=== PATIENT | female | born 1985 | race Caucasian/White ===

== ENCOUNTER 2021-10-06 18:41 | Inpatient (IN) | payer MEDICARE, MEDICAID, SELFPAY ==
[2021-10-06 18:42] VITALS: BP 141/103; PULSE 92; RESP 16; O2SAT 99
--- NOTE | 2021-10-06 18:53 | ED_ITS ---
HPI - General Adult General: Chief complaint: Psychiatric Symptoms Stated complaint: suicidal ideations Time Seen by Provider: 10/06/21 18:44 History of Present Illness: HPI narrative: HPI: [35]yo patient w/ hx of depression BIBA for concerns for suicidal ideation per patient's legal guardian. for On arrival, the patient is AAOx3 and cooperative with my evaluation. No focal complaints of chest pain, shortness of breath, palpitations, N/V, focal GI/ complaints. Currently denies SI/HI. No complaints of hallucinations. Onset: acute Duration: ongoing Location: home Severity: severe Associated symptoms: Deny chest pain, dyspnea, nausea, rash, palpitations or vomiting Review of Systems Const: Denies: fever(s) or chills Eyes: Denies: change in vision ENMT: Denies: mouth pain Card: Denies: chest pain or palpitations Resp: Denies: dyspnea or non-productive cough GI: Denies: abdominal pain, nausea, vomiting or diarrhea : Denies: dysuria Musc: Denies: extremity pain Skin/Breast: Denies: rash or new lesions Neuro: Denies: weakness in extremities Psych: Reports: other (Normal mood) Kyle/Lymph: Denies: easy bruising Physical Exam Const: COMMON NORMALS: alert HENMT: COMMON NORMALS: atraumatic HEAD & SCALP: atraumatic MOUTH: moist mucous membranes not abnormal Eye: COMMON NORMALS: EOMs intact bilaterally and conjunctivae normal CONJUNCTIVA: Yes conjunctivae normal Neck/C-Spine: COMMON NORMALS: full ROM and supple Resp: COMMON NORMALS: normal respiratory effort and clear to auscultation bilaterally AUSCULTATION: clear to auscultation bilaterally Cardio: COMMON NORMALS: regular rate RATE: regular rate GI: COMMON NORMALS: Soft to palpation and non-tender PALPATION: Yes Soft to palpation Extremity: COMMON NORMALS: full ROM Neuro: SENSORIUM/ORIENTATION: Yes alert MOTOR EXAM: Abnormal motor strength present and Other motor observations present (no focla motor deficits) Psych: COMMON NORMALS: speech normal SPEECH: Yes normal speech MOOD & AFFECT: Yes euthymic mood Course Vital Signs: Vital signs: Vital Signs Pulse Rate 92 10/06/21 18:42 Respiratory Rate 16 10/06/21 18:42 Blood Pressure 141/103 10/06/21 18:42 Pulse Oximetry 99 10/06/21 18:42 MDM - General Adult MDM Narrative: Medical decision making narrative: [35]yo patient w/ hx of prior suicidal ideations presenting for concerns of suicidal ideation. HDS, exam within normal limit Thoughts are linear and organized, and the patient has no AH/VH, or HI. Clinically the patient displays no overt toxidrome; they are well appearing, with low suspicion for toxic ingestion given history and exam. Symptoms unlikely 2/2 anemia, hypothyroidism, infection, or ICH. Workup: CBC, CMP, Lipase, salicylate/tylenol, UDS Lab findings: wnl [7:45pm] On reassessment, labs and workup wnl. Patient is hemodynamically stable with no acute medical complaints. Case discussed with psychiatric provider Dr. Willams at [facility] psych inpatient with recommendation for admission Disposition: Psych Lab Data: Labs: Lab Results 10/06/21 10/06/21 18:53 19:40 WBC 7.5 10^3/uL 10^3/ uL (4.0-10.0) RBC 4.07 10^6/uL L 10 ^6/uL (4.1-5.3) Hgb 12.8 g/dL g/dL (11.5-15.3) Hct 38.1 % % (37.0-47.0) MCV 93.6 fl fl (81-99) MCH 31.4 pg pg (28.0-34.0) MCHC 33.6 g/dL g/dL (30.0-36.0) RDW 13.4 % % (12.1-15.1) Plt Count 296 10^3/cmm 10^3 /cmm (130-400) MPV 9.9 fL fL (7.4-10.4) Neut % (Auto) 46.2 % % Lymph % (Auto) 43.5 % % [place] % (Auto) 5.6 % % Eos % (Auto) 3.1 % % Baso % (Auto) 1.1 % % Neut # (Auto) 3.47 10^3/uL 10^3 /uL (1.8-7.7) Lymph # (Auto) 3.3 10^3/uL 10^3/ uL (0.8-4.8) [place] # (Auto) 0.4 10^3/uL 10^3/ uL (0.2-0.9) Eos # (Auto) 0.2 10^3/uL 10^3/ uL (0.0-0.8) Baso # (Auto) 0.1 10^3/uL 10^3/ uL (0.0-0.1) Nucleated RBC % (a uto) 0 % % Nucleated RBCs # 0.0 /100WBC /100W BC Urine Opiates Scre en Positive ng/mL H ng/mL (Negative) Ur Barbiturates Sc reen Negative ng/mL ng /mL (Negative) Ur Phencyclidine S crn Negative ng/mL ng /mL (Negative) Ur Amphetamines Sc reen Negative ng/mL ng /mL (Negative) U Benzodiazepines Scrn Negative ng/mL ng /mL (Negative) Urine Cocaine Scre en Negative ng/mL ng /mL (Negative) U Marijuana (THC) Screen Positive ng/mL H ng/mL (Negative) Discharge Plan Discharge Prescriptions: No Action venlafaxine [Effexor XR] 150 mg capsule,extended release 24hr 150 mg PO DAILY RF: 0 ziprasidone HCl [Geodon] 60 mg capsule 120 mg PO ONCE RF: 0 clonazepam [Klonopin] 1 mg tablet 1 mg PO TID RF: 0 zolpidem [Ambien] 5 mg tablet PO RF: 0 hydrocodone-acetaminophen 5-325 mg tablet 1 tab PO TID PRNRF: 0 propranolol 20 mg tablet 20 mg PO TID RF: 0 bromocriptine 5 mg capsule 10 mg PO BID RF: 0 Premarin 0.3 mg tablet 0.3 mg PO DAILY RF: 0 levetiracetam [Keppra] 500 mg tablet 500 mg PO BID RF: 0 carbamazepine [Tegretol XR] 400 mg tablet extended release 12 hr 400 mg PO BID RF: 0 metformin 1,000 mg tablet 1,000 mg PO BID RF: 0 hydroxyzine HCl 10 mg tablet 20 mg PO BID PRNRF: 0 gabapentin 300 mg capsule 300 mg PO TID RF: 0 multivitamin [One Daily Multivitamin] Tablet 1 tab PO DAILY RF: 0 doxycycline hyclate 100 mg tablet 100 mg PO BID 10 Days Qty: 20 RF: 0 prednisone 20 mg tablet 20 mg PO DAILY 5 Days Qty: 5 RF: 0 zwxeergygkbo-kebcwtghj-tdadfij 6.25-5-10 mg/5 mL syrup 5 ml PO Q6H PRN (Reason: cold symptoms) Qty: 118 RF: 0 Coding Level of Care Code ED Human Resources Intern for Chg Fwd Exam Comprehensive
[2021-10-06 20:00] LABS: Basophils # 0.1 10^3/uL (0.0-0.1); Basophils % 1.1 %; Eosinophils # 0.2 10^3/uL (0.0-0.8); Eosinophils % 3.1 %; Hematocrit 38.1 % (37.0-47.0); Hemoglobin 12.8 g/dL (11.5-15.3); Lymphocytes # 3.3 10^3/uL (0.8-4.8); Lymphocytes % 43.5 %; Mean Corpuscular HGB Conc 33.6 g/dL (30.0-36.0); Mean Corpuscular Hemoglobin 31.4 pg (28.0-34.0); Mean Corpuscular Volume 93.6 fl (81-99); Mean Platelet Volume 9.9 fL (7.4-10.4); Monocytes # 0.4 10^3/uL (0.2-0.9); Monocytes % 5.6 %; Neutrophils # 3.47 10^3/uL (1.8-7.7); Neutrophils % 46.2 %; Nucleated Red Blood Cells % 0 %; Platelet Count 296 10^3/cmm (130-400); Red Blood Count 4.07 10^6/uL (4.1-5.3); Red Cell Distribution Width 13.4 % (12.1-15.1); White Blood Count 7.5 10^3/uL (4.0-10.0)
[2021-10-06 20:23] LABS: Amphetamines Screen Urine Negative (Negative); Barbiturates Screen Urine Negative (Negative); Benzodiazepines Screen Urine Negative (Negative); Cocaine Screen Urine Negative (Negative); Opiate Screen Urine Positive (Negative); PCP Screen Urine Negative (Negative); THC Screen Urine Positive (Negative)
[2021-10-06 20:32] LABS: HCG, Serum Qual Negative (Negative)
[2021-10-06 20:35] LABS: Anion Gap 14.7 (5-19); Blood Urea Nitrogen 6 mg/dL (6-20); Carbon Dioxide 31 mmol/L (22-29); Chloride 102 mmol/L (98-107); Glomerular Filtration Rate 115.1 mL/min (90-130); Glucose 100 mg/dL (65-115); Osmolality Calculated 296 mOsm/kg (285-295); Potassium 3.7 mmol/L (3.5-5.1); Sodium 144 mmol/L (136-145)
[2021-10-06 20:46] LABS: Salicylate < 0.3 mg/dL (3-10)
[2021-10-06 21:26] VITALS: BP 136/82; PULSE 75; RESP 18; O2SAT 98
[2021-10-06 21:50] VITALS: BP 122/88; PULSE 97; RESP 18; TEMP 36.6; O2SAT 97
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
[2021-10-06 23:01] VITALS: BP 134/97; PULSE 79; RESP 16; TEMP 36.4; O2SAT 97
--- NOTE | 2021-10-07 00:48 | PC.NURSE ---
Patient refused PRN trazodone to assist with sleep, stating There are certain meds I don't take and thats one of them. I take vitamins and melatonin though.
[2021-10-07] MEDS: hyDROXYzine 25 mg Capsule 50 MG PO (04:39)
--- NOTE | 2021-10-07 04:49 | PC.NURSE ---
PRN Administration: Patient c/o of anxiety, PRN Hydroxyzine 50mg PO given as ordered.
--- NOTE | 2021-10-07 04:50 | PC.NURSE ---
Addendum entered by Steph De Anda RN 10/07/21 05:07: Patient refused to allow this nurse to complete all of physical assessment. Stated I'm tired I'm not doing this right now, I just want to sleep, come back later. Original Note: Patient has body jewelry that would be difficult to remove and expensive to replace and has retained the following body jewelry: 2 nipple rings, gages on bilateral ear lobes, 4 closed hoops on bilateral earlobes, an industrial ear piercing, 1 tragus horseshoe ring, and 3 upper conch rings. Attempted to contact physician regarding possibility of patient privileges to retain body jewelry, awaiting response.
[2021-10-07 06:00] VITALS: BP 134/88; PULSE 76; RESP 20; TEMP 36.6; O2SAT 95
[2021-10-07 06:40] LABS: Glucose Point of Care 105 mg/dL (70-110)
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
[2021-10-07] MEDS: venlafaxine ER (24HR) 75 mg Capsule 225 MG PO (09:34)
[2021-10-07] MEDS: lisinopril 20 mg Tablet PO (09:35)
[2021-10-07] MEDS: propranolol 20 mg Tablet PO ×3 (09:35→21:18)
[2021-10-07] MEDS: metformin 500 mg Tablet 1000 MG PO ×2 (09:35→17:00)
[2021-10-07] MEDS: gabapentin 400 mg Capsule PO ×3 (09:35→21:18)
[2021-10-07] MEDS: levETIRAcetam 500 mg Tablet PO ×2 (09:35→17:00)
[2021-10-07] MEDS: multivitamin therapeutic Tablet 1 TAB PO (09:35)
[2021-10-07] MEDS: carBAMazepine XR (12 HR) 200 mg Tablet 400 MG PO ×2 (09:35→17:00)
[2021-10-07] MEDS: HYDROcodone-acetaminophen 5-325 mg Tablet 1 TAB PO ×3 (10:21→21:19)
[2021-10-07] MEDS: CLONazepam 1 mg Tablet PO ×3 (10:21→21:18)
--- NOTE | 2021-10-07 13:03 | PC.NURSE ---
Medication- Patient's medications confirmed with patient and pharmacy. Dr notified and gave order to resume medication. All home medications resumed and given as ordered. Pharmacy did verify current prescription for controlled medications of Ambien, Klonopin, and Hydrocodone.
--- NOTE | 2021-10-07 13:07 | PC.NURSE ---
Event At approx 1005, patient was standing at nurses station and became lightheaded. Staff went to hernandez and assisted patient to sitting position. Mild jerky movements noted, patient talking throughout. Feeling passed quickly and patient was assisted to room by staff. VS checked and WNL- 99%, 97.5 temp, 15 respiration, 65 pulse, 126/82. No further events.
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
--- NOTE | 2021-10-07 13:58 | PC.NURSE ---
pt guardian althea chavez called and states the integrated logistics support manager found marijuna in her house and is bringing in into stress unit pt does have medical marijuna card and does have containers with marijuna with personal posessions
[2021-10-07 14:00] VITALS: BP 124/82; PULSE 84; RESP 20; TEMP 36.6; O2SAT 95
--- NOTE | 2021-10-07 14:07 | PC.NURSE ---
PAIN Patient complained of pain and soreness. Request PRN Hiller-Acet 5-325 PRN. Received at 1021. Medication effective. Has had no further complaints voiced.
[2021-10-07 17:02] LABS: Glucose Point of Care 168 mg/dL (70-110)
[2021-10-07 20:25] VITALS: BP 138/92; PULSE 83; RESP 17; TEMP 36.4; O2SAT 99
[2021-10-07] MEDS: zolpidem 5 mg Tablet PO (21:18)
[2021-10-07] MEDS: ziprasidone hcl 60 mg Capsule 120 MG PO (21:18)
[2021-10-08 05:41] VITALS: BP 138/92; PULSE 83; RESP 17; TEMP 36.4; O2SAT 99
[2021-10-08] MEDS: venlafaxine ER (24HR) 75 mg Capsule 225 MG PO (09:44)
[2021-10-08] MEDS: CLONazepam 1 mg Tablet PO ×3 (09:44→20:59)
[2021-10-08] MEDS: metformin 500 mg Tablet 1000 MG PO ×2 (09:44→17:59)
[2021-10-08] MEDS: carBAMazepine XR (12 HR) 200 mg Tablet 400 MG PO ×2 (09:44→18:00)
[2021-10-08] MEDS: propranolol 20 mg Tablet PO ×3 (09:45→21:02)
[2021-10-08] MEDS: levETIRAcetam 500 mg Tablet PO ×2 (09:45→18:00)
[2021-10-08] MEDS: multivitamin therapeutic Tablet 1 TAB PO (09:45)
[2021-10-08] MEDS: gabapentin 400 mg Capsule PO ×3 (09:45→21:00)
[2021-10-08] MEDS: lisinopril 20 mg Tablet PO (09:45)
[2021-10-08] MEDS: HYDROcodone-acetaminophen 5-325 mg Tablet 1 TAB PO ×3 (10:43→21:01)
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
[2021-10-08 14:00] VITALS: BP 141/103; PULSE 90; RESP 17; TEMP 36.3; O2SAT 98
--- NOTE | 2021-10-08 15:57 | PC.NURSE ---
Seizure activity- At 1300 patient seen walking down hernandez, appearing unsteady. Staff to custar to assist. Patient fell to floor prior to staff getting to her. At 1500:10 patient began to have seizure like activity. Staff remained with patient, head protected from floor. Dr notified and arrived to custar. Activity ended at 1501:15. Patient initially scared upon arousing. Thought process cleared quickly, A&OX4, PERRLA. BP elevated directly after- 163/117. Once patient felt more steady, staff assisted to bed. VS rechecked- 134/87, 74 pulse, 98%. Dr ordered new labwork to be done now, at 12 hours, and at 24 hours. 1615- No further issues noted. Labwork has been drawn. Patient has been resting. Up one time to talk on phone.
[2021-10-08 16:08] LABS: White Blood Count 10.4 10^3/uL (4.0-10.0)
[2021-10-08 16:31] LABS: Ammonia 44 umol/L (11-51); Creatine Phosphokinase 142 U/L (26-192)
[2021-10-08 17:58] LABS: Prolactin 5.58 ng/mL (4.8-23.3)
[2021-10-08 20:47] VITALS: BP 130/87; PULSE 75; RESP 17; O2SAT 98
[2021-10-08] MEDS: ziprasidone hcl 60 mg Capsule 120 MG PO (21:00)
[2021-10-08] MEDS: zolpidem 5 mg Tablet PO (21:00)
[2021-10-08] MEDS: hyDROXYzine 25 mg Capsule 50 MG PO (21:00)
--- NOTE | 2021-10-09 02:59 | PC.NURSE ---
Patient received Hydrocodone for pain and vistaril for anxiety. Both were effective.
[2021-10-09 04:14] LABS: White Blood Count 7.4 10^3/uL (4.0-10.0)
[2021-10-09 04:21] LABS: Ammonia 10 umol/L (11-51); Lactate (Lactic Acid level) 1.2 mmol/L (0.5-2.2)
[2021-10-09 04:33] LABS: Creatine Phosphokinase 123 U/L (26-192)
[2021-10-09 05:44] LABS: Prolactin 42.96 ng/mL (4.8-23.3)
[2021-10-09 06:00] VITALS: BP 127/86; PULSE 64; RESP 18; TEMP 36.3; O2SAT 98
[2021-10-09] MEDS: carBAMazepine XR (12 HR) 200 mg Tablet 400 MG PO ×2 (09:12→18:26)
[2021-10-09] MEDS: gabapentin 400 mg Capsule PO ×3 (09:12→21:10)
[2021-10-09] MEDS: CLONazepam 1 mg Tablet PO ×3 (09:12→21:09)
[2021-10-09] MEDS: lisinopril 20 mg Tablet PO (09:13)
[2021-10-09] MEDS: venlafaxine ER (24HR) 75 mg Capsule 225 MG PO (09:14)
[2021-10-09] MEDS: multivitamin therapeutic Tablet 1 TAB PO (09:14)
[2021-10-09] MEDS: propranolol 20 mg Tablet PO ×3 (09:14→21:11)
[2021-10-09] MEDS: levETIRAcetam 500 mg Tablet PO ×2 (09:14→18:26)
[2021-10-09] MEDS: metformin 500 mg Tablet 1000 MG PO ×2 (09:14→18:26)
[2021-10-09] MEDS: HYDROcodone-acetaminophen 5-325 mg Tablet 1 TAB PO ×3 (09:37→21:07)
[2021-10-09] MEDS: albuterol 8 gm MDI 2 PUFF INHALATION ×2 (11:23→19:18)
[2021-10-09 14:00] VITALS: BP 141/95; PULSE 86; RESP 17; TEMP 36.9; O2SAT 97
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
[2021-10-09 16:06] LABS: White Blood Count 10.8 10^3/uL (4.0-10.0)
[2021-10-09 16:23] LABS: Ammonia 17 umol/L (11-51)
[2021-10-09 16:24] LABS: Lactate (Lactic Acid level) 1.6 mmol/L (0.5-2.2)
[2021-10-09 16:31] LABS: Creatine Phosphokinase 115 U/L (26-192); Prolactin 4.36 ng/mL (4.8-23.3)
[2021-10-09 19:19] VITALS: PULSE 99; RESP 18; O2SAT 96
[2021-10-09 21:04] VITALS: BP 148/97; PULSE 77; RESP 17; TEMP 36.2; O2SAT 97
[2021-10-09] MEDS: ziprasidone hcl 60 mg Capsule 120 MG PO (21:09)
[2021-10-09] MEDS: hyDROXYzine 25 mg Capsule 50 MG PO (21:09)
[2021-10-09] MEDS: zolpidem 5 mg Tablet PO (21:11)
--- NOTE | 2021-10-09 21:39 | PC.NURSE ---
PRN Administration: Patient c/o of generalized pain all over 06/11 and requested PRN Hydrocodone-APAP 5/325, given as ordered with noted effectiveness, pain score rated at 4/10
[2021-10-10 05:58] VITALS: BMI 26.6
[2021-10-10 06:00] VITALS: BP 122/81; PULSE 64; RESP 18; TEMP 36.6; O2SAT 96
[2021-10-10] MEDS: levETIRAcetam 500 mg Tablet PO ×2 (09:10→17:36)
[2021-10-10] MEDS: venlafaxine ER (24HR) 75 mg Capsule 225 MG PO (09:10)
[2021-10-10] MEDS: multivitamin therapeutic Tablet 1 TAB PO (09:11)
[2021-10-10] MEDS: carBAMazepine XR (12 HR) 200 mg Tablet 400 MG PO ×2 (09:11→17:36)
[2021-10-10] MEDS: metformin 500 mg Tablet 1000 MG PO ×2 (09:11→17:36)
[2021-10-10] MEDS: gabapentin 400 mg Capsule PO ×3 (09:11→20:04)
[2021-10-10] MEDS: lisinopril 20 mg Tablet PO (09:11)
[2021-10-10] MEDS: CLONazepam 1 mg Tablet PO ×3 (09:11→20:04)
[2021-10-10] MEDS: propranolol 20 mg Tablet PO ×3 (09:11→20:05)
[2021-10-10] MEDS: HYDROcodone-acetaminophen 5-325 mg Tablet 1 TAB PO ×3 (09:14→20:04)
--- NOTE | 2021-10-10 09:56 | PC.NURSE ---
Pain- Patient complained of pain at 0915. Rated pain at an 8. Took PRN [place] at 0915. At 0955 pain reassessed. Rated at a 2 at that time. No other complaints. Patient reports feeling happy this morning.
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
[2021-10-10 13:55] VITALS: BP 116/80; PULSE 72; RESP 18; TEMP 36.6; O2SAT 97
--- NOTE | 2021-10-10 18:38 | PC.NURSE ---
PRN PRN [place] given for back pain again at 1450, rated at 7. Medication effective, no further c/o
[2021-10-10 19:13] VITALS: PULSE 75; RESP 18; O2SAT 97
[2021-10-10] MEDS: albuterol 8 gm MDI 2 PUFF INHALATION (19:13)
[2021-10-10] MEDS: ziprasidone hcl 60 mg Capsule 120 MG PO (20:03)
[2021-10-10] MEDS: zolpidem 5 mg Tablet PO (20:05)
--- NOTE | 2021-10-10 20:10 | PC.NURSE ---
Patient voices c/o back and bilateral arm pain rated 8. Given prn hydrocodone for this.
[2021-10-10 20:18] VITALS: BP 160/97; PULSE 89; RESP 17; TEMP 36.8; O2SAT 98
[2021-10-11 06:00] VITALS: BP 115/77; PULSE 72; RESP 18; TEMP 36.7; O2SAT 96
[2021-10-11] MEDS: lisinopril 20 mg Tablet PO (08:28)
[2021-10-11] MEDS: gabapentin 400 mg Capsule PO ×3 (08:28→20:22)
[2021-10-11] MEDS: multivitamin therapeutic Tablet 1 TAB PO (08:28)
[2021-10-11] MEDS: carBAMazepine XR (12 HR) 200 mg Tablet 400 MG PO ×2 (08:28→16:42)
[2021-10-11] MEDS: CLONazepam 1 mg Tablet PO ×3 (08:28→20:23)
[2021-10-11] MEDS: venlafaxine ER (24HR) 75 mg Capsule 225 MG PO (08:28)
[2021-10-11] MEDS: metformin 500 mg Tablet 1000 MG PO ×2 (08:28→16:42)
[2021-10-11] MEDS: propranolol 20 mg Tablet PO ×3 (08:28→20:23)
[2021-10-11] MEDS: HYDROcodone-acetaminophen 5-325 mg Tablet 1 TAB PO ×3 (08:28→20:22)
[2021-10-11] MEDS: levETIRAcetam 500 mg Tablet PO ×2 (08:28→16:42)
--- NOTE | 2021-10-11 12:58 | NPU.GN ---
[facility] Topic: Group Discussion/ Choices General Mood of Group: Yuridia did attend and participate in group. She was social, well groomed, and seemed to be mentally stable.
[2021-10-11 14:00] VITALS: BP 138/80; PULSE 88; RESP 16; TEMP 36.7; O2SAT 99
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
--- NOTE | 2021-10-11 18:32 | PC.NURSE ---
Seizure At 1812 patient was heard yelling out 1 time. Staff presented to room at 181. Patient found to be in bed having seizure activity. Staff remained present. 38 seconds noted of activity. Patient initially confused and scared upon waking, this passed quickly. Patient reoriented, A&OX4, no injuries noted. Remained in bed after talking with staff. VS 152/96, pulse 91. notified. Patient did report after that she had previously been on Premarin 0.3 mg QD and that mother would not bring meds to unit. Pharmacy stated that hospital equivalent would be [facility]. Pharmacy checking for dosing equivalence and will notify nit. gave new orders to continue at appropriate equivalence when pharmacy approves.
[2021-10-11 20:19] VITALS: PULSE 83; RESP 18; O2SAT 96
[2021-10-11] MEDS: albuterol 8 gm MDI 2 PUFF INHALATION (20:19)
[2021-10-11] MEDS: ziprasidone hcl 60 mg Capsule 120 MG PO (20:22)
[2021-10-11] MEDS: zolpidem 5 mg Tablet PO (20:23)
[2021-10-11] MEDS: docusate sodium 100 mg Capsule PO (21:56)
--- NOTE | 2021-10-11 23:09 | PC.NURSE ---
Patient c/o generalized pain and constipation and having trouble the past 2 days with BMs. PRN hydrocodone given as ordered for generalized pain 05/11 and patient rcvd new order for 100mg docusate PRN, given as ordered.
[2021-10-12 06:00] VITALS: BP 106/70; PULSE 76; RESP 18; O2SAT 96
[2021-10-12] MEDS: venlafaxine ER (24HR) 75 mg Capsule 225 MG PO (08:38)
[2021-10-12] MEDS: CLONazepam 1 mg Tablet PO ×3 (08:38→21:10)
[2021-10-12] MEDS: propranolol 20 mg Tablet PO ×3 (08:38→21:11)
[2021-10-12] MEDS: lisinopril 20 mg Tablet PO (08:38)
[2021-10-12] MEDS: levETIRAcetam 500 mg Tablet PO ×2 (08:38→18:22)
[2021-10-12] MEDS: multivitamin therapeutic Tablet 1 TAB PO (08:38)
[2021-10-12] MEDS: metformin 500 mg Tablet 1000 MG PO ×2 (08:38→18:23)
[2021-10-12] MEDS: HYDROcodone-acetaminophen 5-325 mg Tablet 1 TAB PO ×3 (08:38→21:11)
[2021-10-12] MEDS: gabapentin 400 mg Capsule PO ×3 (08:39→21:11)
[2021-10-12] MEDS: estradiol 1 mg Tablet 0.5 MG PO (08:44)
[2021-10-12] MEDS: carBAMazepine XR (12 HR) 200 mg Tablet 400 MG PO ×2 (10:34→18:22)
--- NOTE | 2021-10-12 12:13 | NPU.GN ---
[facility] Topic:Depression [place] General Mood of Group: Yuridia was in good spirits and social in group. Her hygiene was good. She gave other patients feedback of hers on depression.
[2021-10-12 14:00] VITALS: BP 116/79; PULSE 80; RESP 20; TEMP 36.7; O2SAT 97
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
[2021-10-12 18:49] LABS: Glucose Point of Care 107 mg/dL (70-110)
[2021-10-12 21:04] VITALS: BP 116/79; PULSE 80; RESP 20; TEMP 36.7; O2SAT 97
[2021-10-12] MEDS: docusate sodium 100 mg Capsule PO (21:10)
[2021-10-12] MEDS: ziprasidone hcl 60 mg Capsule 120 MG PO (21:10)
[2021-10-12] MEDS: zolpidem 5 mg Tablet PO (21:11)
[2021-10-12] MEDS: albuterol 8 gm MDI 2 PUFF INHALATION (22:51)
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
--- NOTE | 2021-10-13 03:10 | PC.NURSE ---
PRN Administration: Patient c/o generalized pain 05/11, given PRN hydrocodone PO as ordered with noted effectiveness, pain now at [place] 01/09. Patient also c/o of continued constipation requested PRN docusate PO, given as ordered. Patient reported effectiveness and large BM that was hard and caused bleeding. Patient reported she usually took 200mg docusate at home and requested increase in stool softener.
[2021-10-13 06:00] VITALS: BP 102/65; PULSE 67; RESP 15; TEMP 36.7; O2SAT 97
[2021-10-13] MEDS: estradiol 1 mg Tablet 0.5 MG PO (09:02)
[2021-10-13] MEDS: levETIRAcetam 500 mg Tablet PO ×2 (09:02→18:37)
[2021-10-13] MEDS: venlafaxine ER (24HR) 75 mg Capsule 225 MG PO (09:03)
[2021-10-13] MEDS: metformin 500 mg Tablet 1000 MG PO ×2 (09:03→18:37)
[2021-10-13] MEDS: multivitamin therapeutic Tablet 1 TAB PO (09:03)
[2021-10-13] MEDS: propranolol 20 mg Tablet PO ×3 (09:03→21:16)
[2021-10-13] MEDS: lisinopril 20 mg Tablet PO (09:03)
[2021-10-13] MEDS: gabapentin 400 mg Capsule PO ×3 (09:03→21:16)
[2021-10-13] MEDS: carBAMazepine XR (12 HR) 200 mg Tablet 400 MG PO ×2 (09:03→18:38)
[2021-10-13] MEDS: CLONazepam 1 mg Tablet PO ×3 (09:03→21:15)
[2021-10-13] MEDS: HYDROcodone-acetaminophen 5-325 mg Tablet 1 TAB PO ×3 (09:06→21:15)
[2021-10-13 14:00] VITALS: BP 130/93; PULSE 96; RESP 16; TEMP 36.4; O2SAT 98
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
[2021-10-13 21:10] VITALS: BP 114/75; PULSE 84; RESP 16; TEMP 36.8; O2SAT 99
[2021-10-13] MEDS: ziprasidone hcl 60 mg Capsule 120 MG PO (21:15)
[2021-10-13] MEDS: hyDROXYzine 25 mg Capsule 50 MG PO (21:16)
[2021-10-13] MEDS: zolpidem 5 mg Tablet PO (21:16)
--- NOTE | 2021-10-13 23:42 | PC.NURSE ---
Hydrocodone APAP effective for pain, patient is alseep. Vistaril also effective for anxiety.
[2021-10-14 05:24] VITALS: BP 98/64; PULSE 65; RESP 17; TEMP 36.4; O2SAT 97
[2021-10-14] MEDS: carBAMazepine XR (12 HR) 200 mg Tablet 400 MG PO ×2 (08:21→18:54)
[2021-10-14] MEDS: venlafaxine ER (24HR) 75 mg Capsule 225 MG PO (08:22)
[2021-10-14] MEDS: gabapentin 400 mg Capsule PO ×3 (08:22→20:41)
[2021-10-14] MEDS: lisinopril 20 mg Tablet PO (08:22)
[2021-10-14] MEDS: CLONazepam 1 mg Tablet PO ×3 (08:22→20:39)
[2021-10-14] MEDS: levETIRAcetam 500 mg Tablet PO ×2 (08:22→18:34)
[2021-10-14] MEDS: propranolol 20 mg Tablet PO ×3 (08:22→20:40)
[2021-10-14] MEDS: multivitamin therapeutic Tablet 1 TAB PO (08:22)
[2021-10-14] MEDS: metformin 500 mg Tablet 1000 MG PO ×2 (08:23→18:33)
[2021-10-14] MEDS: estradiol 1 mg Tablet 0.5 MG PO (08:23)
[2021-10-14] MEDS: HYDROcodone-acetaminophen 5-325 mg Tablet 1 TAB PO ×3 (09:13→20:39)
--- NOTE | 2021-10-14 10:32 | NPU.GN ---
[facility] Topic:Crisis Plan/ Triggers and Coping Skills General Mood of Group; Yuridia did attend and participate in group. Hygiene was good and she was social with others and did well with the activity with identifying triggers, what coping mechanisms she uses that works for her and a crisis plan. She shared with others in group based off of her experiences and past situations that caused her crisis.
[2021-10-14 13:30] VITALS: PULSE 127; RESP 22; O2SAT 99
[2021-10-14] MEDS: albuterol 8 gm MDI 2 PUFF INHALATION (13:30)
--- NOTE | 2021-10-14 13:45 | NPU.GN ---
[facility] 12:30-13:30 Group Group Topic: Negative and Positive Attributes verses Self Imagery General Mood of Group: Yuridia did attend group but she did not participate in the group activity. She discussed how she had to many other things going on in her head about her mother and leaving .
[2021-10-14 14:00] VITALS: BP 110/74; PULSE 105; RESP 17; TEMP 36.9; O2SAT 98
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
[2021-10-14 16:27] LABS: Glucose Point of Care 102 mg/dL (70-110)
[2021-10-14] MEDS: hyDROXYzine 25 mg Capsule 50 MG PO (20:39)
[2021-10-14] MEDS: docusate sodium 100 mg Capsule 200 MG PO (20:40)
[2021-10-14] MEDS: ziprasidone hcl 60 mg Capsule 120 MG PO (20:41)
[2021-10-14] MEDS: zolpidem 5 mg Tablet PO (20:41)
[2021-10-14 20:51] VITALS: BP 125/82; PULSE 89; RESP 18; O2SAT 98
[2021-10-14 23:15] VITALS: PULSE 86; O2SAT 97
--- NOTE | 2021-10-15 04:38 | PC.NURSE ---
Patient requested prn Hydrocodone for pain of 8 in her legs, Vistaril 50 mg for anxiety and colace 200 mg for constipation. All meds administered and effective.
[2021-10-15 05:32] VITALS: BP 90/56; PULSE 65; RESP 17; TEMP 36.8; O2SAT 95
[2021-10-15] MEDS: HYDROcodone-acetaminophen 5-325 mg Tablet 1 TAB PO ×2 (07:43→12:55)
[2021-10-15] MEDS: venlafaxine ER (24HR) 75 mg Capsule 225 MG PO (07:44)
[2021-10-15] MEDS: levETIRAcetam 500 mg Tablet PO (07:44)
[2021-10-15] MEDS: carBAMazepine XR (12 HR) 200 mg Tablet 400 MG PO (07:44)
[2021-10-15] MEDS: propranolol 20 mg Tablet PO (07:44)
[2021-10-15] MEDS: estradiol 1 mg Tablet 0.5 MG PO (07:44)
[2021-10-15] MEDS: gabapentin 400 mg Capsule PO (07:45)
[2021-10-15] MEDS: metformin 500 mg Tablet 1000 MG PO (07:45)
[2021-10-15] MEDS: lisinopril 20 mg Tablet PO (07:45)
[2021-10-15] MEDS: multivitamin therapeutic Tablet 1 TAB PO (07:46)
[2021-10-15] MEDS: CLONazepam 1 mg Tablet PO (08:13)
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
[2021-10-15 08:41] VITALS: BP 90/56; PULSE 65; RESP 17; TEMP 36.8; O2SAT 95
--- NOTE | 2021-10-15 08:54 | DCPLANNER ---
IMM completed with pt on 10/15/21 @ 2549. Pt was given a copy of her rights and stated she understands her rights.
== END 2021-10-15 14:06 | disposition home or self-care (01) | DRG 881 ==
LOC: ER 19:16 → NP 21:27
PROVIDERS: Admitting Provider Psychiatry & Neurology Psychiatry; Emergency Provider Emergency Medicine; PCP Family Medicine; Visit Provider Psychiatry & Neurology Psychiatry
DX: F32.A Depression, unspecified (principal); R45.851 Suicidal ideations; F17.210 Nicotine dependence, cigarettes, uncomplicated; Z63.9 Problem related to primary support group, unspecified; Z62.820 Parent-biological child conflict; G40.909 Epilepsy, unspecified, not intractable, without status epilepticus; G80.9 Cerebral palsy, unspecified; E11.9 Type 2 diabetes mellitus without complications; J45.909 Unspecified asthma, uncomplicated; F43.10 Post-traumatic stress disorder, unspecified; F15.21 Other stimulant dependence, in remission; F79 Unspecified intellectual disabilities; Z79.891 Long term (current) use of opiate analgesic; Z79.84 Long term (current) use of oral hypoglycemic drugs; Z79.890 Hormone replacement therapy
CPT/HCPCS: 36415; 36416; 80048; 80306; 80307; 82140; 82550; 82962; 83605; 84146; 84703; 85025; 85048; 94640; 97150; 97165; 99285; J3535; J8499